=== PATIENT | female | born 1995 | race Caucasian/White ===

== ENCOUNTER 2018-08-10 11:49 | Emergency (ER) | payer OTHER, SELFPAY ==
[2018-08-10 11:50] VITALS: BP 135/86; PULSE 83; RESP 20; TEMP 36.6; O2SAT 98; BMI 21.1
--- NOTE | 2018-08-10 12:31 | ED.VISSUMM ---
- ER Visit Summary Date of Service: 08/10/18 Chief Complaint: Right-sided abdominal pain History of Present Illness: The patient is a [address] of endometriosis and polycystic. Patient states she has not a short period for 5 years or longer. Ab0. Patient denies any dysuria or fever. Said last evening surgeon right-sided abdominal pain with associated nausea vomiting. Diarrhea but no melena. No dysuria. No fever. No trauma. He has had 4 prior laparoscopy surgeries for endometriosis. She has never had a bowel obstruction. Physical Examination: Young female no acute distress. Vital signs are stable. Afebrile. H EENT exam unremarkable. Neck nontender. Lungs clear to auscultation. Heart regular rhythm no murmur. Abdomen soft. Nondistended normal bowel sounds. No hernias or masses. Mild tenderness in the right side and right flank. No signs of trauma. No ecchymosis or bruising. No hernias or masses. No signs of obstruction. Positive bowel sounds. Patient moving all 4 extremities. Neurovascular intact. Back nontender. Neurologically awake alert with no focal motor deficits. Test Results: CBC normal white count of 6. Normal hemoglobin. Electrolytes unremarkable normal gap and creatinine. Liver enzymes normal. Lipase normal. UA normal no signs of infection. Serum test negative. Emergency Department Course and Treatment: Treated with IV fluids times a liter morphine and Zofran for pain and nausea. Repeat exam at 1329 patient is doing. Resting comfortably. Abdomen is benign. She has no McBurney's point tenderness. States she is feeling better. She and I discussed all of her test results. Treatment Plan: Follow-up with her primary care physician. Tylenol and/or Motrin for pain. Disposition: Discharge Impression: Acute abdominal pain of uncertain etiology History of chronic pelvic pain from endometriosis This note was generated with [employer] dictation software. It may contain incorrect words, spelling, and punctuation that were not noted in review of the chart prior to signing ED Disposition - Plan for ED Patient: Chief Complaint: Flank Pain Referrals: Dakota Kennedy DO [Primary Care Provider] -
[2018-08-10 12:43] LABS: Red Blood Cells-Urine 0 SEEN /hpf (0-5)
[2018-08-10] MEDS: 0.9% Normal Saline 1,000 ML 1000 ML IV (12:53)
[2018-08-10] MEDS: Ondansetron 4 MG/2 ML Vial IV (12:54)
[2018-08-10] MEDS: Morphine 4 MG/ML Syringe IV (12:54)
[2018-08-10 13:02] LABS: Color, Urine Yellow (Yellow); Glucose, Dipstick Normal (Normal); Ketone-Dipstick Negative (Negative); Leukocyte Esterase-Dipstick 25 /ul (Negative); Nitrite-Dipstick Negative (Negative); Occult Blood-Urine 25 /ul (Negative); Protein-Dipstick Negative (Negative); Specific Gravity, Urine 1.015 (1.002-1.030); Urine Bilirubin Dipstick Negative (Negative); Urine Clarity Sl. Cloudy (Clear); Urine Urobilinogen Normal (Normal)
[2018-08-10 13:03] LABS: Absolute Neutrophil Count 3.4 X10^3/uL (2.0-7.7); Basophil# 0.03 X10^3/uL; Basophil% 0.5 % (0-1); Eosinophil# 0.41 X10^3/uL; Eosinophils% 6.4 % (0-5); Hematocrit 41.5 % (37-47); Lymphocyte % 29.7 % (19-41); Mean Corp Hgb Conc 33.7 g/gl (32-36); Mean Corpuscular Hgb 30.9 pg (27.0-32.0); Mean Corpuscular Volume 91.6 fL (81-99); Mean Platelet Vol. 11.9 fl (6.2-12.0); Monocyte# 0.62 X10^3/uL; Monocyte% 9.7 % (0-10); Neutrophil # 3.44 X10^3/uL (2.7-7.7); Neutrophil % 53.7 % (47-70); Platelet Count 269 K/mm3 (150-450); RBC Distribution Width CV 11.9 % (11.6-14.6); RBC Distribution Width SD 40.2 fl (35.1-43.9); Red Blood Count 4.53 M/mm3 (4.2-5.4); White Blood Count 6.4 K/mm3 (4.4-11.0)
[2018-08-10 13:04] LABS: POSITIVE COUNT NO; POSITIVE DIFFERENTIAL NO; POSITIVE MORPHOLOGY NO
[2018-08-10 13:06] LABS: AST(SGOT) 16 U/L (15-37); Alanine Aminotransfer ALT/SGPT 26 U/L (13-56); Alkaline Phosphatase 76 U/L (45-117); Anion Gap 6 (5-15); BUN 9 mg/dL (7-18); BUN/Creat Ratio 9.7 RATIO (10-20); Bilirubin, Direct 0.27 mg/dL (0.00-0.30); Calcium,Total 8.6 mg/dL (8.5-10.1); Chloride 108 mmol/L (98-107); Creatinine, Serum 0.92 mg/dL (0.55-1.02); EST Glomerular Filtration Rate 79 mL/min (>60); Est Glom Filt Rate - Afr Amer 95 mL/min (>60); Estimated Creatinine Clearance 90.36 ml/min; Globulin 4.3 g/dL (2.2-4.2); Glucose 77 mg/dL (74-106); Lipase 184 U/L (73-393); Potassium 3.6 mmol/L (3.5-5.1); Protein, Total 8.3 g/dL (6.4-8.2); Sodium Level 140 mmol/L (136-145)
[2018-08-10 13:07] LABS: Pregnancy, Serum, hCG Quali. NEGATIVE Negative (0-9 Nonpreg)
[2018-08-10 13:11] LABS: Bacteria RARE /hpf (None Seen); Mucous, Urine RARE /hpf (<or=2+); Squamous Epithelial Cells - UA 0-5 SEEN /hpf (5-10); White Blood Cells 0-5 SEEN /hpf (0-5)
--- NOTE | 2018-08-10 13:31 | ED.DEP ---
ED Disposition - Plan for ED Patient: Disposition: Home or Assisted Living Chief Complaint: Flank Pain Instructions: ED Flank Pain Uncertain Cause Referrals: Dakota Kennedy DO [Primary Care Provider] - 3-5 Days if not improving Additional Instructions: Follow-up with your doctor if not improving. Return was to ER if feeling worse or develop a fever or increasing pain. Tylenol and/or Motrin for pain
== END 2018-08-10 14:19 | disposition home or self-care (01) ==
LOC: ED 14:08
PROVIDERS: Emergency Provider Emergency Medicine; Family Provider Preventive Medicine Occupational Medicine; PCP Preventive Medicine Occupational Medicine
DX: R10.9 Unspecified abdominal pain (principal); R11.2 Nausea with vomiting, unspecified; R19.7 Diarrhea, unspecified; R10.2 Pelvic and perineal pain; G89.29 Other chronic pain; N80.9 Endometriosis, unspecified; E28.2 Polycystic ovarian syndrome
CPT/HCPCS: 80048; 80076; 81001; 83690; 84703; 85025; 96361; 96374; 96375; 99283; J7030; A4216; J2405

== ENCOUNTER 2018-09-05 02:40 | Emergency (ER) | payer OTHER, SELFPAY ==
[2018-09-05 02:41] VITALS: BP 122/85; PULSE 57; RESP 20; TEMP 36.6; O2SAT 99; BMI 22.8
--- NOTE | 2018-09-05 02:51 | ED.DCSUM_ITS ---
- ER Visit Summary Date of Service: 09/05/18 Chief Complaint: Abdominal pain, nausea, vomiting History of Present Illness: The patient is a 23 F who presents with the above symptoms. Started today. Patient states she has a history of endometriosis and PCOS. She has had multiple laparoscopies for this. She states that tonight her pain became worse. She has had nausea with vomiting. She took nothing for it at home. She denies any fevers. This is her similar pain to when she has had endometriosis flares in the past. She states she is scheduled for another surgery in the upcoming month. She sees Dr. Mackenzie at [facility] [place]. Physical Examination: Vital signs reviewed. HEENT exam unremarkable. Heart is regular rate and rhythm without murmurs. Lungs are clear to auscultation. Abdomen is soft with diffuse tenderness. There is no guarding or rebound tenderness. Extremities reveal no edema. Skin exam normal. Neurologic exam normal. Test Results: Laboratory studies normal except for a chloride of 109. Urinalysis negative for infection Emergency Department Course and Treatment: Patient was given morphine and Zofran. She continued to have pain so she was given a dose of Toradol here. Patient likely has an exacerbation of her endometriosis. I will give her naproxen to take at home. She will need to call her GENERAL ASSISTANT for further evaluation. Treatment Plan: [] Disposition: Discharge Impression: Abdominal pain, history of endometriosis This note was generated with [employer] dictation software. It may contain incorrect words, spelling, and punctuation that were not noted in review of the chart prior to signing ED Disposition - Plan for ED Patient: Chief Complaint: Abd Pain Referrals: Dakota Kennedy DO [Primary Care Provider] -
[2018-09-05 02:56] LABS: Absolute Lymphocyte Count 2.52 X10^3/ul (0.83-4.51); Absolute Neutrophil Count 6.8 X10^3/uL (2.0-7.7); Basophil# 0.03 X10^3/uL; Basophil% 0.3 % (0-1); Eosinophil# 0.55 X10^3/uL; Eosinophils% 5.1 % (0-5); Hematocrit 40.3 % (37-47); Hemoglobin 13.3 g/dl (12.0-15.0); Lymphocyte # 2.52 X10^3/ul (4.0); Lymphocyte % 23.2 % (19-41); Mean Corpuscular Hgb 31.4 pg (27.0-32.0); Mean Platelet Vol. 11.4 fl (6.2-12.0); Monocyte# 0.95 X10^3/uL; Monocyte% 8.7 % (0-10); Neutrophil % 62.6 % (47-70); POSITIVE COUNT NO; POSITIVE DIFFERENTIAL NO; POSITIVE MORPHOLOGY NO; Platelet Count 257 K/mm3 (150-450); RBC Distribution Width CV 12.6 % (11.6-14.6); RBC Distribution Width SD 43.9 fl (35.1-43.9); Red Blood Count 4.24 M/mm3 (4.2-5.4); White Blood Count 10.9 K/mm3 (4.4-11.0)
[2018-09-05] MEDS: Ondansetron 4 MG/2 ML Vial IV (02:58)
[2018-09-05] MEDS: Morphine 4 MG/ML Syringe IV (02:59)
[2018-09-05 03:11] LABS: Bacteria 0 SEEN /hpf (None Seen); Mucous, Urine 0 SEEN /hpf (<or=2+); Red Blood Cells-Urine 0 SEEN /hpf (0-5)
[2018-09-05 03:24] LABS: Color, Urine Yellow (Yellow); Glucose, Dipstick Normal (Normal); Ketone-Dipstick 5 mg/dl (Negative); Leukocyte Esterase-Dipstick 25 /ul (Negative); Nitrite-Dipstick Negative (Negative); Occult Blood-Urine 10 /ul (Negative); Protein-Dipstick 30 mg/dl (Negative); Urine Bilirubin Dipstick Negative (Negative); Urine Clarity Cloudy (Clear); Urine Urobilinogen Normal (Normal)
[2018-09-05 03:27] LABS: Internal QC Validated? YES +Cl - CLEAR BKGD; Pregnancy, Urine Negative Negative
[2018-09-05 03:29] LABS: Amorphous Sediment 1+; Squamous Epithelial Cells - UA 0-5 SEEN /hpf (5-10)
[2018-09-05 03:30] LABS: White Blood Cells 0-5 SEEN /hpf (0-5)
[2018-09-05 03:34] LABS: AST(SGOT) 12 U/L (15-37); Alanine Aminotransfer ALT/SGPT 23 U/L (13-56); Albumin, Serum 3.8 g/dL (3.2-5.0); Alkaline Phosphatase 67 U/L (45-117); Anion Gap 7 (5-15); BUN 10 mg/dL (7-18); BUN/Creat Ratio 12.7 RATIO (10-20); Calcium,Total 8.7 mg/dL (8.5-10.1); Chloride 109 mmol/L (98-107); Creatinine, Serum 0.79 mg/dL (0.55-1.02); EST Glomerular Filtration Rate 94 mL/min (>60); Est Glom Filt Rate - Afr Amer 114 mL/min (>60); Estimated Creatinine Clearance 101.91 ml/min; Globulin 3.7 g/dL (2.2-4.2); Glucose 93 mg/dL (74-106); Lipase 206 U/L (73-393); Potassium 3.6 mmol/L (3.5-5.1); Protein, Total 7.5 g/dL (6.4-8.2); Sodium Level 141 mmol/L (136-145)
[2018-09-05] MEDS: Ketorolac 30 MG/ML Syringe IV (03:54)
--- NOTE | 2018-09-05 04:09 | ED.DEP ---
ED Disposition - Plan for ED Patient: Disposition: Home or Assisted Living Chief Complaint: Abd Pain Instructions: ED Abdominal Pain Unkn Cause Prescriptions: Naproxen [Naprosyn] 500 mg PO BID PRN #20 tab Referrals: Dakota Kennedy DO [Primary Care Provider] -
[2018-09-05 04:15] VITALS: BP 99/63; PULSE 62; RESP 18; O2SAT 100
== END 2018-09-05 04:36 | disposition home or self-care (01) ==
PROVIDERS: Emergency Provider Emergency Medicine; Family Provider Preventive Medicine Occupational Medicine; PCP Preventive Medicine Occupational Medicine
DX: R10.9 Unspecified abdominal pain (principal); N80.9 Endometriosis, unspecified; E28.2 Polycystic ovarian syndrome
CPT/HCPCS: 80053; 81001; 81025; 83690; 85025; 96374; 96375; 99285; A4216; J2405

== ENCOUNTER 2020-08-05 06:22 | Emergency (ER) | payer OTHER, SELFPAY ==
[2020-08-05 06:22] VITALS: BP 125/94; PULSE 62; RESP 16; TEMP 36.6; O2SAT 99; BMI 23.1
--- NOTE | 2020-08-05 06:31 | CT_ITS ---
STUDY: CT ABDOMEN AND PELVIS WITHOUT CONTRAST REASON FOR EXAM: Female, 25 years old. NAUSEA AND VOMITING. HISTORY OF ENDOMETRIOSIS RADIATION DOSAGE (If Supplied By Facility): CTDIvol = ( 6.45 ) mGy, DLP = ( 320.74 ) mGycm TECHNIQUE: Transaxial images were obtained from the dome of the diaphragm to the symphysis pubis without oral contrast, and without intravenous contrast. Sagittal and coronal images were reconstructed. Individualized dose optimization techniques were used for this CT. COMPARISON: None. FINDINGS: The visualized lung bases are unremarkable. The visualized portions of the heart are within normal limits. Normal liver. Normal gallbladder and extrahepatic biliary system. Normal spleen. Normal pancreas. Normal bilateral adrenal glands. Normal right kidney. Normal left kidney. Normal visualized stomach. Normal small intestine. Normal colon. The appendix is visualized and appears normal. Normal abdominal aorta. Normal inferior vena cava. Normal retroperitoneum. Normal urinary bladder. An IUD is seen in good position. Normal abdominal wall. Normal osseous structures. CT/Abdomen/Pelvis without Cont IMPRESSION: Normal unenhanced CT of the abdomen and pelvis. Electronically Signed: Jose Matson, at 7:43 EDT Tel , Service support ,
--- NOTE | 2020-08-05 06:32 | ED.VISSUMM ---
- ER Visit Summary Date of Service: 08/05/20 Chief Complaint: [Abdominal pain] History of Present Illness: The patient is a 25 F [presents to the emergency department with abdominal pain that started a few hours ago. Patient has history of PCOS and endometriosis. Patient has had 5 surgeries for endometriosis and is scheduled to have a sixth. Patient while at work 2 hours ago developed more severe pain and she vomited continuously for about 10 minutes. She describes pain to the lower abdomen bilaterally. She denies any fever. She denies diarrhea. She denies urinary symptoms. Patient is on the Mirena and has not had a menstrual period in 7 or 8 years.] Physical Examination: [HEENT-PERRLA, EOMI. Cranial nerves II through XII grossly intact. TMs clear. Mucous membranes moist. No adenopathy. Cardiovascular-regular rate and rhythm without murmur or ectopy Lungs-clear to auscultation, chest wall stable without crepitus or subcu emphysema Abdomen-normoactive bowel sounds, soft. Patient has diffuse tenderness over lower abdomen over the right lower quadrant as well as left lower quadrant suprapubic region. There is no rebound, rigidity, or peritoneal signs. Extremities-intact ?4, normal range of motion, normal pulses, atraumatic] Test Results: [] Emergency Department Course and Treatment: [Patient had an IV line established. Patient was given normal saline. Patient was medicated with Zofran, Toradol, and morphine.] Treatment Plan: [Pending lab results and CT results. Care of patient will be turned over the morning physician] Disposition: [Pending] Impression: [Abdominal pain] This note was generated with [facility] dictation software. It may contain incorrect words, spelling, and punctuation that were not noted in review of the chart prior to signing ED Disposition - Plan for ED Patient: Referrals: Dakota Kennedy DO [Primary Care Provider] -
[2020-08-05] MEDS: 0.9% Normal Saline 1,000 ML 125 ML IV (06:39)
[2020-08-05] MEDS: Ondansetron 4 MG/2 ML Vial IV (06:40)
[2020-08-05] MEDS: Morphine 4 MG/ML Syringe IV (06:41)
[2020-08-05] MEDS: Ketorolac 30 MG/ML Syringe IV (06:44)
[2020-08-05 06:50] LABS: Absolute Lymphocyte Count 2.36 X10^3/uL (0.83-4.51); Bacteria 0 SEEN /hpf (None Seen); Basophil# 0.05 X10^3/uL; Basophil% 0.6 % (0-1); Eosinophil# 0.77 X10^3/uL; Eosinophils% 9.9 % (0-5); Hematocrit 40.4 % (37-47); Hemoglobin 13.7 g/dL (12.0-15.0); Lymphocyte # 2.36 X10^3/ul (4.0); Lymphocyte % 30.3 % (19-41); Mean Corp Hgb Conc 33.9 g/dL (32-36); Mean Corpuscular Hgb 31.9 pg (27.0-32.0); Mean Corpuscular Volume 94.2 fL (81-99); Monocyte# 0.62 X10^3/uL; Monocyte% 7.9 % (0-10); Mucous, Urine 0 SEEN /hpf (<or=2+); NRBC Flagged by Analyzer 0 % (0-5); Neutrophil # 3.97 X10^3/uL (2.7-7.7); Neutrophil % 50.9 % (47-70); Platelet Count 272 K/mm3 (150-450); RBC Distribution Width CV 11.2 % (11.6-14.6); RBC Distribution Width SD 38.3 fl (35.1-43.9); Red Blood Count 4.29 M/mm3 (4.2-5.4); White Blood Count 7.8 K/mm3 (4.4-11.0)
[2020-08-05 06:51] LABS: Color, Urine Yellow (Yellow); Glucose, Dipstick Normal (Normal); Ketone-Dipstick Negative (Negative); Leukocyte Esterase-Dipstick 100 /ul (Negative); Nitrite-Dipstick Negative (Negative); Occult Blood-Urine 250 /ul (Negative); Protein-Dipstick 15 mg/dl (Negative); Urine Bilirubin Dipstick Negative (Negative); Urine Clarity Clear (Clear); Urine Urobilinogen Normal (Normal)
[2020-08-05 06:57] LABS: Amorphous Sediment 1+; Red Blood Cells-Urine 5-10 SEEN /hpf (0-5); Squamous Epithelial Cells - UA 0-5 SEEN /hpf (5-10); White Blood Cells 5-10 SEEN /hpf (0-5)
[2020-08-05 07:07] LABS: AST(SGOT) 11 U/L (15-37); Alanine Aminotransfer ALT/SGPT 22 U/L (13-56); Albumin, Serum 3.9 g/dL (3.2-5.0); Alkaline Phosphatase 71 U/L (45-117); Anion Gap 7 (5-15); BUN 10 mg/dL (7-18); BUN/Creat Ratio 10.8 RATIO (10-20); Calcium,Total 8.6 mg/dL (8.5-10.1); Chloride 109 mmol/L (98-107); Creatinine, Serum 0.93 mg/dL (0.55-1.02); EST Glomerular Filtration Rate 77 mL/min (>60); Est Glom Filt Rate - Afr Amer 93 mL/min (>60); Estimated Creatinine Clearance 85.06 ml/min; Globulin 4.1 g/dL (2.2-4.2); Glucose 91 mg/dL (74-106); Potassium 3.7 mmol/L (3.5-5.1); Sodium Level 141 mmol/L (136-145)
[2020-08-05 07:12] LABS: Internal QC Validated? YES +Cl - CLEAR BKGD; Pregnancy, Serum, hCG Quali. NEGATIVE Negative
--- NOTE | 2020-08-05 08:02 | ED.DEP ---
ED Disposition - Plan for ED Patient: Instructions: ED Abdominal Pain Unkn Cause Fem Prescriptions: Ondansetron [Zofran Odt] 4 mg PO Q8H PRN PRN #10 tab PRN Reason: Nausea Prescription Printed Referrals: Dakota Kennedy DO [Primary Care Provider] -
[2020-08-05 08:10] VITALS: BP 115/67; PULSE 74; RESP 18; O2SAT 99
== END 2020-08-05 08:11 | disposition home or self-care (01) ==
PROVIDERS: Emergency Medicine; Emergency Provider Emergency Medicine; PCP Preventive Medicine Occupational Medicine
DX: R10.30 Lower abdominal pain, unspecified (principal); R11.2 Nausea with vomiting, unspecified; E28.2 Polycystic ovarian syndrome; N80.9 Endometriosis, unspecified; Z97.5 Presence of (intrauterine) contraceptive device
CPT/HCPCS: 74176; 80053; 81001; 84703; 85025; 96361; 96374; 96375; 99283; J7030; A4216; J2405

== ENCOUNTER 2021-04-01 20:20 | Emergency (ER) | payer OTHER, SELFPAY ==
[2021-04-01 20:21] VITALS: BP 138/110; PULSE 97; RESP 16; TEMP 36.3; O2SAT 98; BMI 22.2
--- NOTE | 2021-04-01 20:31 | ED.RN ---
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
[2021-04-01] MEDS: Ondansetron 4 MG/2 ML Vial IV (21:39)
[2021-04-01] MEDS: Ketorolac 30 MG/ML Syringe IV (22:47)
[2021-04-02 00:20] VITALS: BP 124/78; PULSE 60; RESP 16; O2SAT 100
[2021-04-02] MEDS: morphine 8 MG/ML Syringe 6 MG IV (00:20)
== END 2021-04-02 00:33 | disposition home or self-care (01) ==
PROVIDERS: Emergency Provider Emergency Medicine; PCP Preventive Medicine Occupational Medicine
DX: S39.91XA Unspecified injury of abdomen, initial encounter (principal); Y04.0XXA Assault by unarmed brawl or fight, initial encounter; Y93.9 Activity, unspecified; Y92.129 Unspecified place in nursing home as the place of occurrence of the external cause; Y99.0 Civilian activity done for income or pay; E28.2 Polycystic ovarian syndrome; N80.9 Endometriosis, unspecified; Z97.5 Presence of (intrauterine) contraceptive device
CPT/HCPCS: 74177; 96374; 96375; 99283; Q9967; A4216; J2405